=== PATIENT | female | born 1995 | race Caucasian/White ===

== ENCOUNTER 2016-10-30 08:58 | Emergency (ER) | payer BC ==
[~2016-10-30] VITALS: Ht 167.6 cm; Wt 58.0 kg
[~2016-10-30 08:58] MED LIST: FLUC150T PO
[2016-10-30 09:04] VITALS: TEMP 36.8; Ht 167.6 cm; Wt 58.0 kg
[2016-10-30 10:00] LABS: MEAN CELL VOLUME 83.9 fL (80-100); MEAN CORPUSCULAR HEMOGLOBIN 29.7 pg (25-34); MEAN CORPUSCULAR HGB CONC 35.4 g/dl (32-36); MEAN PLATELET VOLUME 8.9 fL (7.4-10.4); PLATELET COUNT 331 K/uL (130-400); RED BLOOD COUNT 4.41 M/uL (4.2-5.4); WHITE BLOOD COUNT 7.64 K/uL (4.8-10.8)
[2016-10-30 10:11] LABS: INR 1.1 (0.9-1.1); PARTIAL THROMBOPLASTIN RATIO 1.1; PROTHROMBIN TIME (PATIENT) 11.7 SECONDS (9.0-12.0)
[2016-10-30 10:16] LABS: BUN/CREATININE RATIO 16.5 (10-20); CALCIUM 8.8 mg/dl (8.5-10.1); CREATININE 0.68 mg/dl (0.60-1.20); POTASSIUM 3.7 mmol/L (3.5-5.1)
--- NOTE | 2016-10-30 11:05 | DIAGNOSTIC IMAGING REPORT ---
LIMITED (US) CLINICAL HISTORY: Vaginal bleeding. . COMPARISON STUDY: No previous studies for comparison. FINDINGS: The uterus measures 8.8 x 4.4 x 6 cm. The maternal left ovary appear normal. There is a 23 mm right ovarian cyst consistent with a corpus luteum. A single intrauterine gestational sac was visualized. A normal-appearing yolk sac was identified. cardiac activity was not yet visualized. There is a trace subchorionic hematoma. IMPRESSION: Very early intrauterine gestation. cardiac activity cannot yet be confirmed. Trace subchorionic hematoma. Clinical and ultrasound follow-up recommended. Electronically signed by: Nicolas Perkins M.D. 10/30/2016 11:04 AM Dictated Date/Time: 10/30/2016 11:00 AM
[2016-10-30 12:16] VITALS: BP 112/51; PULSE 82; O2SAT 98
[2016-10-30 12:33] LABS: URINE APPEARANCE CLEAR (CLEAR); URINE BILIRUBIN NEG (NEG); URINE COLOR YELLOW; URINE EPITHELIAL CELL AUTO >30 /lpf (0-5); URINE NITRITE NEG (NEG); URINE PH 6.5 (4.5-7.5); URINE SPECIFIC GRAVITY 1.011 (1.000-1.030); UROBILINOGEN NEG (NEG); ZZUR CULT IF INDIC CLEAN CATCH NO
[2016-10-30 12:42] LABS: MANUAL MICROSCOPIC REQUIRED? NO; REVIEW REQ? NO
--- NOTE | 2016-10-30 16:37 | EMERGENCY ROOM VISIT NOTE ---
History Report prepared by Jona: Romeo Jones Under the Supervision of: Dr. Wil Hamilton M.D. First contact with patient: 09:28 Chief Complaint: VAGINAL BLEEDING Stated Complaint: EARLY PREG 5 WKS,SPOTTING,CRAMPING,LIGHTHEADEDNESS History of Present Illness The patient is a 21 year old female who presents to the Emergency Room with complaints of acute vaginal bleeding that started this morning. The patient noticed some spotting this morning, and has not had any other vaginal bleeding since her last menstrual period. The patient states that she is 5.5 weeks , which she is basing on her last period. She has yet to follow up with an Construction Superintendent, and does not have a specific provider or group in mind. She has not had any imaging yet. The patient also noticed some pelvic cramping today, rated 3/10 in severity. She has been experiencing nausea & vomiting for the past two days, and intermittent lightheadedness for the past week. She denies any urinary symptoms or indications of a UTI. This is the patient's first . Source of History: patient Onset: this morning Position: other (vaginal) Symptom Intensity: spotting Quality: other (bleeding) Timing: other (acute) Associated Symptoms: + abdominal pain (pelvic cramps), + nausea, + vomiting , No urinary symptoms Review of Systems See HPI for pertinent positives & negatives. A total of 10 systems reviewed and were otherwise negative. Past Medical & Surgical Medical Problems: (1) Arthralgia (2) Bilateral flank pain Family History Hypertension Social History Smoking Status: Former Smoker Alcohol Use: occasionally Drug Use: none Housing Status: lives with roommate Occupation Status: employed Current/Historical Medications No Active Prescriptions or Reported Meds Allergies Coded Allergies: Prochlorperazine (Unverified Adverse Reaction, Intermediate, TERRIBLE PANIC ATTACKS, 10/30/16) Physical Exam Vital Signs Date Time Temp Pulse Resp B/P Pulse Ox O2 Delivery O2 Flow Rate FiO2 10/30/16 12:16 82 16 112/51 98 10/30/16 11:12 76 16 114/52 99 Room Air 10/30/16 09:04 36.8 81 18 108/67 97 Room Air Physical Exam GENERAL: Patient is in no acute distress. HEENT: No acute trauma, normocephalic atraumatic, mucous membranes moist, no nasal congestion, no scleral icterus. NECK: No stridor, no adenopathy, no meningismus, trachea is midline. LUNGS: Clear to auscultation bilaterally, no wheeze, no rhonchi, breath sounds equal. HEART: Without murmurs gallops or rubs, regular rate and rhythm. ABDOMEN: Soft, tender primarily over the left lower quadrant / pelvis, bowel sounds positive, no hernias, no peritonitis. EXTREMITIES: No cyanosis or edema, full range of motion of all the joints without pain or difficulty, no signs for acute trauma. NEUROLOGIC: Oriented x 3, no acute motor or sensory deficits, no focal weakness. SKIN: No rash, no jaundice, no diaphoresis. Medical Decision & Procedures ER Provider Diagnostic Interpretation: US results as stated below per my review and radiologist interpretation: LIMITED (US) CLINICAL HISTORY: Vaginal bleeding. . COMPARISON STUDY: No previous studies for comparison. FINDINGS: The uterus measures 8.8 x 4.4 x 6 cm. The maternal left ovary appear normal. There is a 23 mm right ovarian cyst consistent with a corpus luteum. A single intrauterine gestational sac was visualized. A normal-appearing yolk sac was identified. cardiac activity was not yet visualized. There is a trace subchorionic hematoma. IMPRESSION: Very early intrauterine gestation. cardiac activity cannot yet be confirmed. Trace subchorionic hematoma. Clinical and ultrasound follow-up recommended. Electronically signed by: Nicolas Perkins M.D. 10/30/2016 11:04 AM Dictated Date/Time: 10/30/2016 11:00 AM Laboratory Results 10/30/16 09:42 10/30/16 09:42 Test 10/30/16 09:42 10/30/16 11:56 Red Blood Count 4.41 M/uL (4.2-5.4) Mean Corpuscular Volume 83.9 fL (80-100) Mean Corpuscular Hemoglobin 29.7 pg (25-34) Mean Corpuscular Hemoglobin Concent 35.4 g/dl (32-36) RDW Standard Deviation 37.5 fL (36.4-46.3) RDW Coefficient of Variation 12.2 % (11.5-14.5) Mean Platelet Volume 8.9 fL (7.4-10.4) Prothrombin Time 11.7 SECONDS (9.0-12.0) Prothromb Time International Ratio 1.1 (0.9-1.1) Activated Partial Thromboplast Time 29.3 SECONDS (21.0-31.0) Partial Thromboplastin Ratio 1.1 Anion Gap 9.0 mmol/L (3-11) Est Creatinine Clear Calc Drug Dose 117.8 ml/min Estimated GFR () 142.9 Estimated GFR (Non- 123.3 BUN/Creatinine Ratio 16.5 (10-20) Calcium Level 8.8 mg/dl (8.5-10.1) Human Chorionic Gonadotropin, Quant 6757 mIU/mL Urine Color YELLOW Urine Appearance CLEAR (CLEAR) Urine pH 6.5 (4.5-7.5) Urine Specific Cecil 1.011 (1.000-1.030) Urine Protein NEG (NEG) Urine Glucose (UA) NEG (NEG) Urine Ketones 2+ (NEG) Urine Occult Blood TRACE (NEG) Urine Nitrite NEG (NEG) Urine Bilirubin NEG (NEG) Urine Urobilinogen NEG (NEG) Urine Leukocyte Esterase NEG (NEG) Urine WBC (Auto) 1-5 /hpf (0-5) Urine RBC (Auto) 0-4 /hpf (0-4) Urine Hyaline Casts (Auto) 1-5 /lpf (0-5) Urine Epithelial Cells (Auto) >30 /lpf (0-5) Urine Bacteria (Auto) NEG (NEG) Laboratory results reviewed by me. Urine dip showed ketones and trace blood but no signs of infection. ED Course 09: The patient was evaluated in room B11b. A complete history and physical exam was performed. 1133: Discussed the case with Dr. Hopson, Obstetrics & Gynecology. The patient will follow up with them. 1158: Reassessed the patient. Discussed the findings with them. She verbalized understanding and agreement of the treatment plan. The patient is ready for discharge. Medical Decision Differential diagnosis includes bleeding in healthy , miscarriage, ovarian cyst, ectopic , anemia, UTI, coagulopathy. There is no leukocytosis, no concerning anemia. No significant electrolyte abnormality or kidney failure. Quantitative beta hCG is over 6000, this is consistent with her presumed dates. Blood type was A+, no RhoGAM required. There was no coagulopathy. Urinalysis shows ketones, no signs of infection. Pelvic ultrasound showed a subchorionic hematoma, the was really early but within the uterus, no heart tones noted. The patient did not want anything for pain or nausea. She has done well here. I told her the results of her testing. I did speak with OB. The patient will have a follow-up appointment this week. The patient was encouraged to return for any heavier bleeding, worsening symptoms. Consults Time Called: 1125 Consulting Physician: Dr. Hopson, Obstetrics & Gynecology Returned Call: [phone]: Discussed the case with Dr. Hopson, Obstetrics & Gynecology. The patient will follow up with them. Impression Primary Impression: Vaginal bleeding Additional Impressions: Subchorionic hematoma Scribe Attestation The scribe's documentation has been prepared under my direction and personally reviewed by me in its entirety. I confirm that the note above accurately reflects all work, treatment, procedures, and medical decision making performed by me. Departure Information Dispostion Home / Self-Care Prescriptions No Active Prescriptions or Reported Meds Referrals No Doctor, Assigned (PCP) Forms HOME CARE DOCUMENTATION FORM, IMPORTANT VISIT INFORMATION, WORK / SCHOOL INSTRUCTIONS Patient Instructions My [facility] Additional Instructions call and set up ob appt---call today tylenol for pain rest no heavy lifting no sex return for worsening symptoms or heavy bleeding Problem Qualifiers
== END 2016-10-30 12:18 | disposition home or self-care (01) ==
LOC: C.EDB 08:59
DX: O99.89 Other specified diseases and conditions complicating pregnancy, childbirth and the puerperium (principal); N93.9 Abnormal uterine and vaginal bleeding, unspecified; R11.2 Nausea with vomiting, unspecified; Z87.891 Personal history of nicotine dependence; Z3A.01 Less than 8 weeks gestation of pregnancy

== ENCOUNTER 2016-11-01 09:26 | Emergency (ER) | payer BC ==
[~2016-11-01] VITALS: Ht 167.6 cm; Wt 61.2 kg
[2016-11-01 09:43] VITALS: TEMP 37; Ht 167.6 cm; Wt 61.2 kg
[2016-11-01] MEDS ORDERED: SODIUM CHLORIDE 0.9% 1000ML 500 ML IV STA (09:54)
--- NOTE | 2016-11-01 09:57 | EMERGENCY ROOM VISIT NOTE ---
History Report prepared by Jona: Sea Ramirez Under the Supervision of: Dr. Wil Hamilton M.D. First contact with patient: 09:49 Chief Complaint: ED VAG BLEEDING Stated Complaint: 6 WKS. , VAGINAL BLEEDING History of Present Illness The patient is a 21 year old female who presents to the Emergency Room with complaints of an episode of vaginal bleeding beginning this morning. She notes she was here 2 days ago with vaginal bleeding. She admits to being around 5.5 weeks , and that this is her first which was unplanned. The patient denies having any current pain, and has not had any recent trauma or fever in the past couple days. She reports having some nausea upon taking vitamins. The patient has not been seen by OB but has an appointment at [facility] for this week. Source of History: patient Onset: this morning Position: other (vagina) Quality: other (vaginal bleed) Timing: other (episode) Associated Symptoms: + nausea (upon taking vitamins), No fevers Review of Systems See HPI for pertinent positives & negatives. A total of 10 systems reviewed and were otherwise negative. Past Medical & Surgical Medical Problems: (1) Arthralgia (2) Bilateral flank pain Family History Hypertension Social History Smoking Status: Former Smoker Alcohol Use: occasionally Drug Use: none Housing Status: lives with roommate Occupation Status: employed Current/Historical Medications No Active Prescriptions or Reported Meds Allergies Coded Allergies: Prochlorperazine (Unverified Adverse Reaction, Intermediate, TERRIBLE PANIC ATTACKS, 11/01/16) Physical Exam Vital Signs Date Time Temp Pulse Resp B/P Pulse Ox O2 Delivery O2 Flow Rate FiO2 11/01/16 12:34 76 106/56 100 11/01/16 11:46 70 101/49 100 11/01/16 09:43 37.0 81 18 121/68 99 Room Air Physical Exam GENERAL: Patient is in no acute distress. HEENT: No acute trauma, normocephalic atraumatic, mucous membranes moist, no nasal congestion, no scleral icterus. NECK: No stridor, no adenopathy, no meningismus, trachea is midline. LUNGS: Clear to auscultation bilaterally, no wheeze, no rhonchi, breath sounds equal. HEART: Without murmurs gallops or rubs, regular rate and rhythm. ABDOMEN: Soft, nontender, bowel sounds positive, no hernias, no peritonitis. EXTREMITIES: No cyanosis or edema, full range of motion of all the joints without pain or difficulty, no signs for acute trauma. NEUROLOGIC: Oriented x 3, no acute motor or sensory deficits, no focal weakness. SKIN: No rash, no jaundice, no diaphoresis. Medical Decision & Procedures ER Provider Diagnostic Interpretation: US results as stated below per my review and radiologist interpretation: Limited ultrasound LIMITED (US) FINDINGS: Single, viable intrauterine of approximately 5 weeks 6 days gestational age. heartbeat is confirmed. Previous described subchorionic hemorrhage is not appreciated currently. IMPRESSION: 1. The study now confirms presence of a single, viable intrauterine . 2. gestational age corresponds to 5 weeks 6 days. 3. Previously described subchorionic bleed has resolved Electronically signed by: Minh Orozco M.D. 11/01/2016 10:58 AM Dictated Date/Time: 11/01/2016 10:56 AM Laboratory Results 11/01/16 10:02 Test 11/01/16 10:02 Red Blood Count 4.12 M/uL (4.2-5.4) Mean Corpuscular Volume 83.5 fL (80-100) Mean Corpuscular Hemoglobin 28.9 pg (25-34) Mean Corpuscular Hemoglobin Concent 34.6 g/dl (32-36) RDW Standard Deviation 37.1 fL (36.4-46.3) RDW Coefficient of Variation 12.2 % (11.5-14.5) Mean Platelet Volume 9.2 fL (7.4-10.4) Human Chorionic Gonadotropin, Quant 81285 mIU/mL Laboratory results reviewed by me. Medications Administered Medications (Trade) Dose Ordered Sig/Angel Route Start Time Stop Time Status Last Admin Dose Admin Sodium Chloride (Nss 1000ml) 500 ml @ 999 mls/hr Q31M STAT IV 11/01/16 09:54 11/01/16 10:24 DC 11/01/16 10:04 999 MLS/HR ED Course 0951: The patient was evaluated in room A11B. A complete history and physical exam was performed. 0954: Ordered NSS 500 ml @ 999 mls/hr IV. 1230: Reevaluated the patient. Discussed results and discharge instructions: She verbalized understanding and agreement. The patient is ready for discharge. Medical Decision Differentials include miscarriage, ectopic , vaginal bleeding in healthy , anemia, coagulopathy, and trauma. There is no leukocytosis. There is a very mild anemia noted but nothing significant or worrisome. Beta quantitative result has increased significantly since 2 days ago. Pelvic ultrasound shows a viable intrauterine , the subchorionic hematoma noted previously has resolved. The patient was reassured by her testing. She is not in pain or in any distress , the bleeding has slowed. She had more bleeding earlier before arriving at the ER. She is being seen by OB in a few days, she will keep this appointment. Continued pelvic rest was encouraged. If worsening, she can return. Impression Primary Impression: Vaginal bleeding Additional Impression: Scribe Attestation The scribe's documentation has been prepared under my direction and personally reviewed by me in its entirety. I confirm that the note above accurately reflects all work, treatment, procedures, and medical decision making performed by me. Departure Information Dispostion Home / Self-Care Prescriptions No Active Prescriptions or Reported Meds Referrals No Doctor, Assigned (PCP) Patient Instructions My [facility] Additional Instructions no sex pelvic rest no heavy lifting or prolonged time on your feet see ob thursday as scheduled ultrasound shows a healthy now, the area of bleeding has resolved return for worsening symptoms Problem Qualifiers
[2016-11-01 10:35] LABS: HEMATOCRIT 34.4 % (37-47); MEAN CELL VOLUME 83.5 fL (80-100); MEAN CORPUSCULAR HEMOGLOBIN 28.9 pg (25-34); MEAN CORPUSCULAR HGB CONC 34.6 g/dl (32-36); MEAN PLATELET VOLUME 9.2 fL (7.4-10.4); PLATELET COUNT 317 K/uL (130-400); RED BLOOD COUNT 4.12 M/uL (4.2-5.4); WHITE BLOOD COUNT 7.04 K/uL (4.8-10.8)
--- NOTE | 2016-11-01 10:59 | DIAGNOSTIC IMAGING REPORT ---
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 heartbeat is confirmed. Previous described subchorionic hemorrhage is not appreciated currently. IMPRESSION: 1. The study now confirms presence of a single, viable intrauterine . 2. gestational age corresponds to 5 weeks 6 days. 3. Previously described subchorionic bleed has resolved Electronically signed by: Minh Orozco M.D. 11/01/2016 10:58 AM Dictated Date/Time: 11/01/2016 10:56 AM
[2016-11-01 12:34] VITALS: BP 106/56; PULSE 76; O2SAT 100
--- NOTE | 2016-11-03 09:10 | DIAGNOSTIC IMAGING REPORT ---
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 heartbeat is confirmed. Previous described subchorionic hemorrhage is not appreciated currently. IMPRESSION: 1. The study now confirms presence of a single, viable intrauterine . 2. gestational age corresponds to 5 weeks 6 days. 3. Previously described subchorionic bleed has resolved Electronically signed by: Minh Orozco M.D. 11/01/2016 10:58 AM Dictated Date/Time: 11/01/2016 10:56 AM
== END 2016-11-01 12:35 | disposition home or self-care (01) ==
LOC: C.EDB 09:27 → C.EDA 12:35
DX: O99.89 Other specified diseases and conditions complicating pregnancy, childbirth and the puerperium (principal); N93.9 Abnormal uterine and vaginal bleeding, unspecified; Z3A.01 Less than 8 weeks gestation of pregnancy; R11.0 Nausea

== ENCOUNTER 2017-02-19 00:59 | Outpatient (CLI) | payer BC ==
[~2017-02-19] VITALS: Ht 167.6 cm; Wt 65.0 kg
[2017-02-19 01:54] VITALS: Ht 167.6 cm; Wt 65.0 kg
[2017-02-19] MEDS ORDERED: PRENTAB26 PO (02:00)
== END 2017-02-19 02:09 | disposition home or self-care (01) ==
LOC: C.LD 00:59 → C.OPB 00:59
PROVIDERS: ATTEND Obstetrics & Gynecology
DX: Z34.02 Encounter for supervision of normal first pregnancy, second trimester (principal); Z3A.21 21 weeks gestation of pregnancy

== ENCOUNTER 2017-04-08 21:43 | Outpatient (CLI) | payer BC ==
[~2017-04-08] VITALS: Ht 167.6 cm; Wt 70.5 kg
[~2017-04-08 21:43] MED LIST changes: -FLUC150T PO; +PRENTAB26 PO
[2017-04-08 22:30] VITALS: Ht 167.6 cm; Wt 70.5 kg
[2017-06-25] MEDS ORDERED: MTR600X PO (10:08)
== END 2017-04-08 22:20 | disposition home or self-care (01) ==
LOC: C.OPB 21:43 → C.LD 21:44 → C.OPB 22:20
PROVIDERS: ATTEND Obstetrics & Gynecology
DX: O36.8130 Decreased fetal movements, third trimester, not applicable or unspecified (principal); Z3A.28 28 weeks gestation of pregnancy

== ENCOUNTER 2017-04-28 09:46 | Emergency (ER) | payer BC ==
[~2017-04-28] VITALS: Ht 167.6 cm; Wt 71.5 kg
[2017-04-28 09:50] VITALS: TEMP 37; Ht 167.6 cm; Wt 71.5 kg
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
[2017-04-28] MEDS ORDERED: OMEG10007 PO (10:09)
[2017-04-28 10:38] LABS: BENZODIAZEPINE, URINE NEG (NEG); COCAINE,URINE NEG (NEG); PHENCYCLIDINE, URINE NEG (NEG)
[2017-04-28 10:41] LABS: BASO % 0.1 %; BASO ABS # 0.02 K/uL (0-0.2); COMPLETE YES; EOS % 0.5 %; HEMATOCRIT 33.4 % (37-47); IG% 0.6 %; LYMPH % 15.8 %; LYMPH ABS # 2.26 K/uL (1.2-3.4); MEAN CELL VOLUME 88.1 fL (80-100); MEAN CORPUSCULAR HEMOGLOBIN 30.6 pg (25-34); MEAN CORPUSCULAR HGB CONC 34.7 g/dl (32-36); MEAN PLATELET VOLUME 9.3 fL (7.4-10.4); PLATELET COUNT 312 K/uL (130-400); RED BLOOD COUNT 3.79 M/uL (4.2-5.4); WHITE BLOOD COUNT 14.29 K/uL (4.8-10.8)
[2017-04-28 11:01] LABS: ALT/SGPT 24 U/L (12-78); AST/SGOT 15 U/L (15-37); BLOOD UREA NITROGEN 6 mg/dl (7-18); BUN/CREATININE RATIO 10.5 (10-20); CALCIUM 9.2 mg/dl (8.5-10.1); CARBON DIOXIDE 23 mmol/L (21-32); CHLORIDE 107 mmol/L (98-107); CREATININE 0.54 mg/dl (0.60-1.20); GLUCOSE 85 mg/dl (70-99); POTASSIUM 4.1 mmol/L (3.5-5.1); SODIUM 138 mmol/L (136-145)
[2017-04-28 11:12] LABS: ALB/GLOB RATIO 0.8 (0.9-2); ALKALINE PHOSPHATASE 118 U/L (45-117)
[2017-04-28 11:22] LABS: ACETAMINOPHEN < 2 ug/ml (10-30)
[2017-04-28 15:02] LABS: URINE APPEARANCE CLOUDY (CLEAR); URINE BILIRUBIN NEG (NEG); URINE COLOR YELLOW; URINE EPITHELIAL CELL AUTO >30 /lpf (0-5); URINE NITRITE NEG (NEG); URINE SPECIFIC GRAVITY 1.015 (1.000-1.030); UROBILINOGEN NEG (NEG); ZZUR CULT IF INDIC CLEAN CATCH YES
[2017-04-28 15:12] LABS: MANUAL MICROSCOPIC REQUIRED? NO; REVIEW REQ? NO
--- NOTE | 2017-04-28 19:32 | EMERGENCY ROOM VISIT NOTE ---
ED Visit Note First contact with patient: 19:31 See this patient at change of shift signout from Dr. Robles. Please see his note for complete history physical. The patient is a 22-year-old female who presented to the emergency department for a mental health evaluation. She was medically cleared previously. Currently there is a bed search underway. The patient requires medical treatment as well as because she is currently near her third trimester. The patient did not require any medications at this time. She was evaluated by the emergency Department minimal director case management. The patient was accepted at [facility] for inpatient mental health care. Transfer paperwork was filled out by myself.
[2017-04-28 23:48] VITALS: BP 97/68; PULSE 71; O2SAT 98
== END 2017-04-28 23:51 ==
LOC: C.EDB 09:47 → C.EDA 23:51
DX: Z00.8 Encounter for other general examination (principal); O99.89 Other specified diseases and conditions complicating pregnancy, childbirth and the puerperium; R45.851 Suicidal ideations; F32.9 Major depressive disorder, single episode, unspecified

== ENCOUNTER 2017-06-09 15:38 | Outpatient (CLI) | payer BC ==
[~2017-06-09] VITALS: Ht 167.6 cm; Wt 79.1 kg
[~2017-06-09 15:38] MED LIST changes: +OMEG10007 PO
[2017-06-09 17:04] VITALS: Ht 167.6 cm; Wt 79.1 kg
[2017-06-09] MEDS ORDERED: RANI150T3 PO (17:09)
--- NOTE | 2017-06-09 19:15 | Progress Note ---
Progress Note Date of Service Jun 09, 2017. Progress Note 22 WF P0000 at 37.2 weeks sent in from office for history of bleeding after intercourse on Thursday and again yesterday some spotting. Seen in L&D for monitoring. NO bleeding noted and no abdominal pain on abdominal exam. No edema or headache. FHT Cat 1 with no regular contractions. Will d/c home and follow up in office. Instructions to not have any intercourse till seen in office.
[2017-06-09 19:36] LABS: BENZODIAZEPINE, URINE NEG (NEG); COCAINE,URINE NEG (NEG); PHENCYCLIDINE, URINE NEG (NEG)
== END 2017-06-09 19:20 | disposition home or self-care (01) ==
LOC: C.LD 15:38 → C.OPB 15:38
PROVIDERS: ATTEND Obstetrics & Gynecology
DX: O26.853 Spotting complicating pregnancy, third trimester (principal); Z3A.37 37 weeks gestation of pregnancy

== ENCOUNTER 2017-06-18 23:21 | Outpatient (CLI) | payer BC ==
[~2017-06-18] VITALS: Ht 167.6 cm; Wt 60.0 kg
[~2017-06-18 23:21] MED LIST changes: +RANI150T3 PO
[2017-06-19 00:32] VITALS: Ht 167.6 cm; Wt 60.0 kg
== END 2017-06-19 00:35 | disposition home or self-care (01) ==
LOC: C.LD 23:21 → C.OPB 23:21
PROVIDERS: ATTEND Obstetrics & Gynecology
DX: O26.893 Other specified pregnancy related conditions, third trimester (principal); N89.8 Other specified noninflammatory disorders of vagina; Z3A.00 Weeks of gestation of pregnancy not specified

== ENCOUNTER 2017-06-23 02:42 | Inpatient (IN) | payer BC ==
[~2017-06-23] VITALS: Ht 167.6 cm; Wt 80.0 kg
[2017-06-23 04:40] VITALS: Ht 167.6 cm; Wt 80.0 kg
[2017-06-23 05:09] LABS: HEMATOCRIT 35.2 % (37-47); MEAN CELL VOLUME 87.8 fL (80-100); MEAN CORPUSCULAR HEMOGLOBIN 29.9 pg (25-34); MEAN PLATELET VOLUME 9.5 fL (7.4-10.4); PLATELET COUNT 329 K/uL (130-400); RED BLOOD COUNT 4.01 M/uL (4.2-5.4); WHITE BLOOD COUNT 15.85 K/uL (4.8-10.8)
[2017-06-23 05:13] LABS: MEAN CORPUSCULAR HGB CONC 34.1 g/dl (32-36)
--- NOTE | 2017-06-23 07:08 | Progress Note ---
Progress Note Date of Service Jun 23, 2017. Progress Note Admit Note 22 F P0000 at 39.2 weeks with SROM clear fluid and onset of irregular contractions. Cervix is 3-4/80/-1. FHT Cat 1. GBS is negative. Will admit in labor.
[2017-06-23] MEDS ORDERED: LACTATED RINGER'S 1000ML 500 ML IV PRN ×2 (13:13→14:48)
[2017-06-23] MEDS ORDERED: BUPIVACAINE 0.25% 30 ML VIAL ONE (13:15)
[2017-06-23] MEDS ORDERED: OXYTOCIN 30 UNITS/500ML NSS IV PRN ×2 (13:15→21:00)
[2017-06-23] MEDS ORDERED: EpHEDrine SULFATE INJ 50 MG/ML AMP ONE (13:16)
[2017-06-23] MEDS ORDERED: FENTANYL CITRATE INJ 50 MCG/1 ML 2 ML VIAL ONE (13:16)
[2017-06-23] MEDS ORDERED: FENTANYL 2MCG/ML ROPIV 1.25MG/ML 100ML BAG EPI ONE (13:16)
[2017-06-23] MEDS ORDERED: NALOXONE HCL INJ 1 MG in SODIUM CHLORIDE 0.9% 1000ML 1,000 ML IV PRN (14:48)
[2017-06-23] MEDS ORDERED: ONDANSETRON INJ 2 MG/ML 2 ML VIAL IV PRN (15:00)
[2017-06-23] MEDS ORDERED: DiphenhydrAMINE HCL 50 MG/ML VIAL IV PRN (15:00)
[2017-06-23] MEDS ORDERED: EpHEDrine SULFATE INJ 50 MG/ML AMP IV PRN (15:00)
[2017-06-23] MEDS ORDERED: PROMETHAZINE HCL INJ 6.25 MG in SODIUM CHLORIDE 0.9% 50ML 50 ML IV PRN (15:00)
[2017-06-23] MEDS ORDERED: NALOXONE HCL INJ 0.4 MG/1 ML VIAL/CARP IV PRN (15:00)
[2017-06-23] MEDS ORDERED: NALBUPHINE HCL INJ 10 MG/ML AMP IV PRN (15:00)
[2017-06-23] MEDS ORDERED: FENTANYL 2MCG/ML ROPIV 1.25MG/ML 100ML BAG EPI PRN (15:00)
[2017-06-23] MEDS: LACTATED RINGER'S 1000ML 1,000 ML IV SCH ×2 (15:04→19:00)
[2017-06-23] MEDS ORDERED: RANITIDINE HCL 150 MG TAB PO PRN (21:00)
[2017-06-23] MEDS ORDERED: SUPERCREAM 0.870 % 15GM JAR EXT PRN (21:00)
[2017-06-23] MEDS ORDERED: OXYCODONE/ACETAMINOPHEN 5-325 TAB PO PRN (21:00)
[2017-06-23] MEDS ORDERED: ACETAMINOPHEN/CODEINE 300/30MG TAB PO PRN (21:00)
[2017-06-23] MEDS ORDERED: HYDROCORTISONE ACETATE 25 MG SUPP PR PRN (21:00)
[2017-06-23] MEDS ORDERED: DIPHTHERIA/TETANUS/PERTUSSIS 0.5 ML SYR/VIAL IM. ONE (21:00)
[2017-06-23] MEDS ORDERED: LANOLIN OINT EXT PRN ×2 (21:00)
[2017-06-23] MEDS ORDERED: ACETAMINOPHEN 325 MG TAB PO PRN (21:00)
[2017-06-23] MEDS ORDERED: BENZOCAINE 20% AER SPR 82.5 GM CAN EXT PRN (21:00)
--- NOTE | 2017-06-23 22:41 | DELIVERY SUMMARY ---
DATE OF OPERATION: 06/23/2017 TIME OF DELIVERY: 2027. DELIVERY OF PLACENTA: 2030. DELIVERY NOTE: The patient is a 22-year-old, 1 para 0 at 39 weeks and 2 days gestation, who presents to labor and delivery on the morning of 06/23/2017 with spontaneous rupture of membranes that occurred at 01:45 a.m. Clear amniotic fluid was noted. Oxytocin was began for labor augmentation. She received an epidural for anesthesia. She reached complete dilation at 1823 with the urge to push. The patient pushed to delivery at 2027 to an intact perineum. She delivered a viable female infant in the left occiput anterior position. Nuchal cord x2 was reduced at delivery. The baby was delivered and placed on the patient's abdomen. Delayed cord clamping was performed. Cord was then cut. Apgars were 8 at one minute and 9 at five minutes. Please see nursing notes for further baby assessment. Cord blood was then obtained. Intact placenta with 3-vessel cord was delivered at 2030. Oxytocin infusion was then begun. The lower uterine segment and vagina were cleared of any blood clot and debris. Exploration of the perineum noted a first-degree vaginal laceration and a left periurethral laceration which was injected with lidocaine for anesthesia and was suture ligated with 2-0 and 3-0 Vicryl suture in a continuous running fashion. Excellent hemostasis was noted. No other lacerations were seen. All sponge, instrument and needle counts were found to be correct x2. Estimated blood loss was 300 mL. Both the patient and baby tolerated the delivery well and were in recovery with stable vital signs. I attest to the content of the Intraoperative Record and any orders documented therein. Any exception s are noted below.
[2017-06-24] MEDS: ACETAMINOPHEN/CODEINE 300/30MG TAB PO PRN ×2 (00:01→04:35)
[2017-06-24 00:20] VITALS: BP 101/60; PULSE 83; TEMP 36.9; O2SAT 98
--- NOTE | 2017-06-24 03:21 | Anesthesia Procedure Note ---
Anesthesia Epidural Removal Nt Date & Time Jun 24, 2017 at 03:21 Vital Signs Pain Intensity: 4.0 Vital Signs Past 12 Hours Date Time Temp Pulse Resp B/P (MAP) Pulse Ox O2 Delivery O2 Flow Rate FiO2 06/24/17 00:20 98 Room Air 06/24/17 00:20 36.9 83 18 101/60 (74) 98 Room Air Notes Mental Status: alert / awake / arousable, participated in evaluation Nausea / Vomiting: adequately controlled Pain: adequately controlled Airway Patency, RR, SpO2: stable & adequate BP & HR: stable & adequate Hydration State: stable & adequate Neuraxial Anesthesia: was administered Anesthetic Complications: no major complications apparent, pt satisfied with anesthetic care Epidural: removed without complications, with tip intact
[2017-06-24 04:40] VITALS: BP 106/64; PULSE 74; TEMP 36.7; O2SAT 100
[2017-06-24] MEDS: IBUPROFEN 600 MG TAB PO PRN ×3 (07:11→20:48)
[2017-06-24 08:00] VITALS: BP 114/64; PULSE 70; TEMP 36.6
[2017-06-24] MEDS: PRENATAL VITAMIN TAB PO SCH (08:57)
[2017-06-24] MEDS: FERROUS SULFATE 325 MG TAB PO SCH (08:57)
[2017-06-24] MEDS: DOCUSATE SODIUM 100 MG CAP PO SCH ×2 (08:57→20:44)
--- NOTE | 2017-06-24 09:54 | OB/GYN Progress Note ---
EXTRUDER OPERATOR HORIZONTAL Progress Note Date of Service Jun 24, 2017. Subjective conversation w/ patient, physical exam Ambulation: ambulating normally Voiding: no voiding problems Passing Gas: Yes Diet Tolerance: Regular Diet Lochia: Small Feeding Type: Bottle Feeding Objective Vital Signs Date Time Temp Pulse Resp B/P (MAP) Pulse Ox O2 Delivery O2 Flow Rate FiO2 06/24/17 08:00 Room Air 06/24/17 08:00 36.6 70 18 114/64 (81) Room Air 06/24/17 04:40 36.7 74 16 106/64 (78) 100 Room Air 06/24/17 00:20 98 Room Air 06/24/17 00:20 36.9 83 18 101/60 (74) 98 Room Air Physical Exam General Appearance: WELL-APPEARING, NO APPARENT DISTRESS Abdomen: non tender, soft Fundus: Firm Extremities: non-tender, normal inspection, no pedal edema Laboratory Results Last 24 Hours Test 06/24/17 09:46 Assessment and Plan Post- Day Number: 1 Continue Routine Care: tent d/c in AM
[2017-06-24 10:00] LABS: HEMATOCRIT 30.6 % (37-47)
[2017-06-24 11:20] VITALS: BP 96/48; PULSE 85; TEMP 36.9
[2017-06-24 15:50] VITALS: BP 108/61; PULSE 81; TEMP 36.9
[2017-06-24] MEDS ORDERED: BISACODYL 5 MG TABEC PO SCH (20:00)
[2017-06-24 20:40] VITALS: BP 112/63; PULSE 81; TEMP 37.1
[2017-06-25 00:50] VITALS: BP 103/59; PULSE 79; TEMP 36.7; O2SAT 97
[2017-06-25] MEDS: IBUPROFEN 600 MG TAB PO PRN ×3 (01:03→10:10)
[2017-06-25 01:15] VITALS: BP 99/50; PULSE 68; O2SAT 99
[2017-06-25] MEDS ORDERED: BISACODYL 10 MG SUPP PR PRN (07:00)
[2017-06-25 07:50] VITALS: BP 115/64; PULSE 65; TEMP 36.8; O2SAT 99
[2017-06-25 07:53] LABS: HEMATOCRIT 28.5 % (37-47); MEAN CELL VOLUME 88.2 fL (80-100); MEAN CORPUSCULAR HEMOGLOBIN 30.7 pg (25-34); MEAN CORPUSCULAR HGB CONC 34.7 g/dl (32-36); MEAN PLATELET VOLUME 9.1 fL (7.4-10.4); PLATELET COUNT 256 K/uL (130-400); RED BLOOD COUNT 3.23 M/uL (4.2-5.4)
--- NOTE | 2017-06-25 10:06 | OB/GYN Progress Note ---
SENIOR PLANNING ANALYST Progress Note Date of Service Jun 25, 2017. Subjective conversation w/ patient, physical exam Ambulation: ambulating normally Voiding: no voiding problems Passing Gas: Yes Diet Tolerance: Regular Diet Lochia: Moderate Feeding Type: Breast Feeding Review of Systems Constitutional: No fever, No chills, No sweats, No weight loss, No weakness, No fatigue, No problem reported Respiratory: No cough, No sputum, No wheezing, No shortness of breath, No dyspnea on exertion, No dyspnea at rest, No hemoptysis, No problem reported Cardiac: No chest pain, No orthopnea, No PND, No edema, No claudication, No palpitations, No problem reported Breast: No see HPI, No breast lump, No change in shape, No nipple discharge, No breast pain, No problem reported Abdomen: No pain, No nausea, No vomiting, No diarrhea, No constipation, No GI bleeding, No problem reported Female : No see HPI, No dysuria, No urinary frequency, No hematuria, No incontinence, No abnormal vaginal bleeding, No vaginal discharge, No problem reported Objective Vital Signs Date Time Temp Pulse Resp B/P (MAP) Pulse Ox O2 Delivery O2 Flow Rate FiO2 06/25/17 07:50 99 Room Air 06/25/17 07:50 36.8 65 18 115/64 (81) 99 Room Air 06/25/17 01:15 68 18 99/50 (66) 99 Room Air 06/25/17 01:15 99 Room Air 06/25/17 00:50 36.7 79 18 103/59 (74) 97 Room Air 06/25/17 00:50 97 Room Air 06/24/17 20:40 37.1 81 16 112/63 (79) Room Air 06/24/17 15:50 36.9 81 18 108/61 (77) Room Air 06/24/17 15:50 Room Air 06/24/17 11:20 36.9 85 18 96/48 (64) Room Air Physical Exam General Appearance: WELL-APPEARING, WD/WN, NO APPARENT DISTRESS Respiratory/Chest: chest non-tender, lungs clear, normal breath sounds, no respiratory distress, no accessory muscle use Cardiovascular: regular rate, rhythm, no edema, no gallop, no JVD, no murmur Abdomen: normal bowel sounds, non tender, soft, no organomegaly, no pulsatile mass Fundus: Firm Extremities: normal range of motion, non-tender, normal inspection, no pedal edema, no calf tenderness Laboratory Results Last 24 Hours Test 06/25/17 07:27 White Blood Count 14.70 K/uL Red Blood Count 3.23 M/uL Hemoglobin 9.9 g/dL Hematocrit 28.5 % Mean Corpuscular Volume 88.2 fL Mean Corpuscular Hemoglobin 30.7 pg Mean Corpuscular Hemoglobin Concent 34.7 g/dl RDW Standard Deviation 46.2 fL RDW Coefficient of Variation 14.2 % Platelet Count 256 K/uL Mean Platelet Volume 9.1 fL Assessment and Plan Post- Day Number: 2 Continue Routine Care: PPd #2 pt doing well d/c hoe with instructions
[2017-06-25] MEDS ORDERED: MTR600X PO (10:08)
[2017-06-25] MEDS: DOCUSATE SODIUM 100 MG CAP PO SCH (10:09)
[2017-06-25] MEDS: FERROUS SULFATE 325 MG TAB PO SCH (10:09)
[2017-06-25] MEDS: PRENATAL VITAMIN TAB PO SCH (10:10)
--- NOTE | 2017-06-25 10:10 | Discharge Instructions ---
Discharge Instructions Date of Service Jun 25, 2017. Admission Reason for Admission: LABOR Discharge Discharge Diagnosis / Problem: Discharge Goals Goal(s): Routine recovery after delivery Activity Recommendations Activity Limitations: as noted below ACTIVITY RECOMMENDATIONS: * Gradual return to full activity over the next 2-3 weeks. * No lifting - nothing heavier than baby over the next 2-3 weeks. * Do not engage in vigorous exercise, sexual activity or sports until cleared by your physician. * Do not drive or operate any motorized equipment until cleared by your physician. * You may shower/bathe daily. BREAST CARE: If you are not breast feeding: * Wear a supportive bra 24 hours a day for one to two weeks. * Avoid stimulating your breasts and nipples as much as possible during the first few weeks after delivery. * When taking a shower, have the warm water hit your back, not breasts. * When your breasts feel full, apply ice packs. Usually three to four times a day helps ease the discomfort. * Take a mild pain medication (Tylenol/Motrin) when you are uncomfortable. If breast feeding: * Use breast milk to lubricate nipples. Lansinoh cream may be used for sore nipples. You do not need to remove cream prior to breast feeding. If using a different brand of cream, check the label for directions regarding removal of cream prior to nursing. * Wear a supportive bra. * If having problems with breasts or breast feeding, call a sales consultant insurance or your health care provider. EPISIOTOMY CARE: After delivery, if you have an episiotomy (stitches), the following steps will ease discomfort and aid healing. * For the first 24 hours after delivery, place ice packs next to your episiotomy to help reduce swelling. * After the first 24 hour-period, sitz baths, either portable or in the tub, are suggested. A shower with a shower arm sprayed over the episiotomy may be comforting. * Noa care should be done after each voiding and bowel movement. Squirt warm water from a plastic bottle over the perineum (region of the body between the anus and urinary opening) and pat dry. * Use Dermoplast to ease discomfort. Shake container. Angela directly over the episiotomy. * Place a Tucks on a clean sanitary pad next to your episiotomy. OVER THE COUNTER MEDICATION: * For discomfort or pain, you may use Acetaminophen (Tylenol), Ibuprofen (Advil ), or Naproxen (Aleve) following the package directions. * For constipation you may use Colace following the package directions. SPECIAL CARE INSTRUCTIONS: When you are discharged from the hospital, it is important for you to follow the instructions listed below: * During the first week at home, you should be able to care for yourself and your baby. In addition, the usual light household activities are encouraged. * Limit your activities to the way you feel. Do not try to clean the house or move furniture. Be sensible. * If you actively engage in sports and have done so up until the time of your delivery, you may resume these activities as soon as you feel able. This may take up to one month or even longer. Use good judgment. * Continue to take your vitamins for at least six weeks after the of your baby. * Your diet need not be limited unless you were on a special diet before your delivery. Breast-feeding mothers need around 2500 calories per day and at least 64-80 ounces of fluid per day (8 to 10 glasses). * You should eat foods from the four major food groups. Crash diets or fad diets are to be avoided. Eating lean meats, fresh fruits and vegetables, low-fat dairy products, high fiber foods and a regular exercise program, will help you get back to your pre- weight without putting your health at risk. * Constipation is sometimes a problem after delivery. Take a mild laxative as needed. If breast feeding, Milk of Magnesia is acceptable to use. You may use a suppository or Fleets enema if no episiotomy. * A daily shower or tub bath is suggested. Be sure to thoroughly and gently dry the perineum. * A bloody vaginal discharge will usually continue until around four weeks post . A small amount of bleeding may continue for as long as six weeks. Vaginal discharge changes from the bright red bleeding after delivery to pink then brownish and finally yellowish-pink before becoming white and disappearing. * Bleeding may increase with activity. Your first period may come in 4-8 weeks. If you are breast feeding, your period may be delayed even longer. * [place] (sex) can begin whenever both you and your partner feel comfortable and do not have any form of genital infection. It is recommended that you wait until after your return appointment and discuss with your physician. If you have questions, please talk to your health care practitioner. A condom should be used to prevent infection and . * Foreplay, gentle intercourse and lubrication is very important the first several times to prevent pain. A water-based lubricant such as K-Y jelly or Astroglide may be used. * Tampons may be used six weeks after delivery. * Douching should be avoided for 6 weeks after delivery. * If you have RH negative blood and your baby is RH positive, you will receive RHOGAM by injection prior to discharge. The nurse will give you a card to keep with you that has the date and place that you received RHOGAM after delivery. * During your care, you had a Rubella screen done to check for the presence of rubella antibodies in your blood. If your test was negative, you will receive a Rubella vaccine prior to discharge. This vaccine may cause a fever, soreness at the injection site and flu-like symptoms. If these symptoms persist, notify your health care practitioner. is not advised for three months after a Rubella vaccine. There is a higher chance of having a baby with defects if conceived within three months of getting the vaccine. * If you were discharged 24 hours from delivery or before 48 hours: Visiting nurses will come to your home 48 hours after discharge to assess you and your baby. The visiting nurse will meet with you while you are in the hospital to arrange a time and get directions to your home. * Verbalizes understanding of car seat law as reviewed with patient nursing. * Car Seat hand-out given and reviewed with patient by nursing. * Shaken baby information reviewed with patient by nursing. Call you doctor if: * Heavy bleeding (saturating several pads an hour) or passing clots the size of your fist. * A fever >101 degrees F (38.3 degrees C) on two occasions four hours apart and/or chills. * Unusual pain in the pelvic or vaginal areas. * "Baby Blues" lasting longer than two weeks. If you have any questions or concerns, call your health care practitioner at . FOLLOW-UP VISIT: * Please call the office at to schedule a 6 week examination. It is important you keep this appointment. * It is important for you to make arrangements for either yearly or twice yearly check-ups thereafter. . Current Hospital Diet Patient's current hospital diet: Regular OB Diet Discharge Diet Recommended Diet: Regular Diet Pending Studies Studies pending at discharge: no Medical Emergencies . Who to Call and When: Medical Emergencies: If at any time you feel your situation is an emergency, please call 911 immediately. . Non-Emergent Contact Non-Emergency issues call your: Specialist . . "Provider Documentation" section prepared by Bernard Mccloud. . VTE Core Measure Inpt VTE Proph given/why not?: Treatment not indicated
[2017-06-25 11:15] VITALS: BP_DIAS 64; PULSE 65; TEMP 36.8
== END 2017-06-25 13:20 | disposition home or self-care (01) | DRG 775 ==
LOC: C.OPB 02:42 → C.LD 02:42 → C.OPB 04:33 → C.LD 04:33 → C.MS4N 06-24 00:04
PROVIDERS: ADMIT Obstetrics & Gynecology; ATTEND Obstetrics & Gynecology
PROC: 10E0XZZ Delivery of Products of Conception, External Approach (ICD-10-PCS; principal; 2017-06-23)
PROC: 0HQ9XZZ Repair Perineum Skin, External Approach (ICD-10-PCS; principal; 2017-06-23)
DX: O70.0 First degree perineal laceration during delivery (principal); O69.81X1 Labor and delivery complicated by cord around neck, without compression, fetus 1; Z3A.39 39 weeks gestation of pregnancy; Z37.0 Single live birth

== ENCOUNTER 2019-04-30 05:09 | Observation (INO) ==
[2019-04-30] MEDS ORDERED: MoRPHine SULFATE 4 MG/ML 1 ML CARP\\VIAL IV STA (06:02)
[2019-04-30] MEDS ORDERED: ONDANSETRON INJ 2 MG/ML 2 ML VIAL IV STA (06:02)
[2019-04-30 06:29] LABS: Basophils # (auto) 0.01 K/uL (0-0.2); Basophils % (auto) 0.1 %; Hematocrit (blood only) 36.4 % (37-47); Hemoglobin 12.7 g/dL (12.0-16.0); Immature Granulocytes # (auto) 0.04 K/uL (0.00-0.02); Immature Granulocytes % (auto) 0.2 %; Lymphocytes # (auto) 0.59 K/uL (1.2-3.4); Lymphocytes % (auto) 3.6 %; Mean Corpuscular Hgb Conc 34.9 g/dL (32-36); Mean Corpuscular Volume 81.6 fL (80-100); Mean Platelet Volume 9.3 fL (7.4-10.4); Monocytes # (auto) 0.53 K/uL (0.11-0.59); Monocytes % (auto) 3.2 %; Neutrophils # (auto) 15.29 K/uL (1.4-6.5); Neutrophils % (auto) 92.9 %; Platelet Count 325 K/uL (130-400); RDW Coefficient of Variation 12.9 % (11.5-14.5); RDW Standard Deviation 38.2 fL (36.4-46.3); Red Blood Count 4.46 M/uL (4.2-5.4); White Blood Count 16.46 K/uL (4.8-10.8)
[2019-04-30 06:42] LABS: INR 1.1 (0.9-1.1); Partial Thromboplastin Time 28.2 Seconds (21.0-31.0)
[2019-04-30] MEDS ORDERED: IOVERSOL 100ml IV PRN (06:44)
[2019-04-30 06:47] LABS: Alanine Aminotransferase 15 U/L (12-78); Albumin Level 4.4 gm/dl (3.4-5.0); Aspartate Aminotransferase 6 U/L (15-37); BUN Creatinine Ratio 17.5 (10-20); Blood Urea Nitrogen 15 mg/dl (7-18); Carbon Dioxide 24 mmol/L (21-32); Chloride 106 mmol/L (98-107); Est GFR (African American) 105.1; Est GFR (Non-African American) 90.7; Glucose 138 mg/dl (70-99); Potassium 3.4 mmol/L (3.5-5.1); Sodium 138 mmol/L (136-145)
[2019-04-30 06:51] LABS: Albumin Globulin Ratio 1.3 (0.9-2); Alkaline Phosphatase 86 U/L (45-117); Bilirubin,Total 0.6 mg/dl (0.2-1); Globulin 3.5 gm/dl (2.5-4.0); Total Protein 7.9 gm/dl (6.4-8.2); Troponin I < 0.015 ng/ml (0-0.045)
[2019-04-30] MEDS ORDERED: ONDANSETRON INJ 2 MG/ML 2 ML VIAL IV PRN ×3 (08:18→15:43)
[2019-04-30] MEDS ORDERED: SODIUM CHLORIDE 0.9% 1000ML 1,000 ML IV ONE (08:18)
[2019-04-30] MEDS ORDERED: MoRPHine SULFATE 4 MG/ML 1 ML CARP\\VIAL IV PRN ×2 (08:18→15:43)
--- NOTE | 2019-04-30 08:18 | CT Scan Report ---
ABDOMEN AND PELVIS CT WITH IV CONTRAST CT DOSE: 421.80 mGy.cm HISTORY: epigastric abdominal pain TECHNIQUE: Multiaxial CT images of the abdomen and pelvis were performed following the use of intrave nous contrast. A dose lowering technique was utilized adhering to the principles of ALARA. COMPARISON STUDY: Abdominal ultrasound 04/2019. FINDINGS: The lung bases are clear. No pneumoperitoneum. No pneumatosis. No fractures within the visu alized osseous structures. The liver, gallbladder, pancreas, spleen, kidneys, and adrenal glands are unremarkable. No retroperitoneal lymphadenopathy. The bladder, uterus, bilateral adnexa are unremarka ble. Questionable thickening at the rectum is likely due to underdistention. No evidence for bowel ob struction. A normal appendix is not identified. There appears to be a dilated tubular structure withi n the right lower quadrant on images 296 through 311 which measures up to 11 mm in diameter. This is concerning for an abnormal appendix. However, this is difficult to separate from the adjacent small b owel loops. IMPRESSION: A normal appendix is not identified. There appears to be a dilated tubular structure within the right lower quadrant which measures up to 11 mm in diameter. This is concerning for an abnormal appendix i n the setting of an acute appendicitis. However, this is difficult to separate from the adjacent smal l bowel loops. Therefore, repeat abdomen and pelvis CT following oral contrast is recommended for fur ther evaluation. Electronically signed by: Coleman Kelley M.D. 04/30/2019 8:15 AM
--- NOTE | 2019-04-30 08:31 | Emergency Department Note ---
ED Provider Note Patient was signed out to me by Maricamren Bill PA-C. Please see her dictation for full history and physical. Patient's CT scan with contrast was pending at time of shift change. She remained stable while in the department. I did reevaluate the patient. She stated her abdominal discomfort was increasing, but was still tolerable. She did not require any further pain medication initially. CT scan with contrast revealed an acute appendicitis. I did contact Dr. Serrato from general surgery regarding this finding. He did come to the ED to evaluate the patient. Please see his dictation for final management. She did go to the OR for acute appendectomy. Patient did require 1 additional dose of morphine 4 mg IV prior to departure for the OR. Impression & Plan Abdominal pain Past Med/Surg History Medical History ADHD Acne Social History Preferred Language: South Korean Communication Ability: Effective Dough Sheeter Required: No Beliefs That Will Affect Care: None Current Living Situation: Spouse and Family Other Information That Helps Us Care for You: No Feels Safe at Home: Yes Safety Concerns: Feels Safe At This Time Smoking Status: Current every day smoker Tobacco Type: cigarettes ; Cigarettes Per Day: 3 ; Do You Dip or Chew Tobacco: No ; Second Hand Exposure: No ; Tobacco Cessation Education Requested by Patient: No Hx Alcohol Use: Yes Hx Substance Use: No Results & Data Vital Signs Vital Signs - 24 hr 04/30/19 05:02 04/30/19 06:03 04/30/19 06:34 Temperature 36.8 C Temperature Source Oral Sepsis Recent Fever Within 48 Hours No Sepsis Action Taken by Nursing No Action Required Pulse Rate 90 Pulse Rate [Left Apical] 93 H Pulse Rhythm [Left Apical] Pulse Strength [Left Apical] Respiratory Rate 20 20 Respiratory Effort / Characteristics Normal for Patient Normal for Patient Respiratory Depth Respiratory Pattern Blood Pressure 112/44 L Blood Pressure [Right Arm] 116/56 L Blood Pressure Mean 66 Blood Pressure Mean [Right Arm] 76 Blood Pressure Position Sitting Blood Pressure Position [Right Arm] Lying Pulse Oximetry 100 100 100 Oxygen Delivery Method Room Air Room Air Room Air 04/30/19 07:00 04/30/19 09:02 04/30/19 11:13 Temperature Temperature Source Sepsis Recent Fever Within 48 Hours Sepsis Action Taken by Nursing Pulse Rate Pulse Rate [Left Apical] 85 88 85 Pulse Rhythm [Left Apical] Regular Regular Pulse Strength [Left Apical] Normal Normal Respiratory Rate 18 18 20 Respiratory Effort / Characteristics Non-Labored Spontaneous Non-Labored Spontaneous Non-Labored Respiratory Depth Normal Normal Normal Respiratory Pattern Regular Regular Regular Blood Pressure Blood Pressure [Right Arm] 115/62 118/64 91/52 L Blood Pressure Mean Blood Pressure Mean [Right Arm] 79 82 65 Blood Pressure Position Blood Pressure Position [Right Arm] Lying Lying Pulse Oximetry 98 97 99 Oxygen Delivery Method Room Air Room Air Room Air 04/30/19 12:18 04/30/19 13:04 04/30/19 13:13 Temperature Temperature Source Sepsis Recent Fever Within 48 Hours Sepsis Action Taken by Nursing Pulse Rate Pulse Rate [Left Apical] 87 79 Pulse Rhythm [Left Apical] Pulse Strength [Left Apical] Respiratory Rate 17 16 Respiratory Effort / Characteristics Non-Labored Non-Labored Respiratory Depth Normal Normal Respiratory Pattern Regular Regular Blood Pressure Blood Pressure [Right Arm] 96/54 L 94/51 L Blood Pressure Mean Blood Pressure Mean [Right Arm] 68 65 Blood Pressure Position Blood Pressure Position [Right Arm] Pulse Oximetry 100 100 95 Oxygen Delivery Method Room Air Room Air Room Air Laboratory Data Result diagrams: 04/30/19 06:17 04/30/19 06:17 Lab Results 04/30/19 04/30/19 04/30/19 Range/Units 06:17 06:17 06:17 WBC 16.46 H (4.8-10.8) K/uL RBC 4.46 (4.2-5.4) M/uL Hgb 12.7 (12.0-16.0) g/dL Hct 36.4 L (37-47) % MCV 81.6 (80-100) fL MCH 28.5 (25-34) pg MCHC 34.9 (32-36) g/dL RDW Std Deviation 38.2 (36.4-46.3) fL RDW Coeff of Zoila 12.9 (11.5-14.5) % Plt Count 325 (130-400) K/uL MPV 9.3 (7.4-10.4) fL Immature Gran % (Auto) 0.2 % Neut % (Auto) 92.9 % Lymph % (Auto) 3.6 % [place] % (Auto) 3.2 % Eos % (Auto) 0.0 % Baso % (Auto) 0.1 % Immature Gran # (Auto) 0.04 H (0.00-0.02) K/uL Neut # (Auto) 15.29 H (1.4-6.5) K/uL Lymph # (Auto) 0.59 L (1.2-3.4) K/uL [place] # (Auto) 0.53 (0.11-0.59) K/uL Eos # (Auto) 0.00 (0-0.5) K/uL Baso # (Auto) 0.01 (0-0.2) K/uL PT 11.0 (9.0-12.0) Seconds INR 1.1 (0.9-1.1) APTT 28.2 (21.0-31.0) Seconds PTT Ratio 1.0 Sodium 138 (136-145) mmol/L Potassium 3.4 L (3.5-5.1) mmol/L Chloride 106 (98-107) mmol/L Carbon Dioxide 24 (21-32) mmol/L Anion Gap 8.0 (3-11) BUN 15 (7-18) mg/dl Creatinine 0.88 (0.6-1.2) mg/dl Est Cr Clr Drug Dosing 98.0 ml/min Est GFR ( Amer) 105.1 Est GFR (Non-Af Amer) 90.7 BUN/Creatinine Ratio 17.5 (10-20) Glucose 138 H (70-99) mg/dl Calcium 9.0 (8.5-10.1) mg/dl Total Bilirubin 0.6 (0.2-1) mg/dl AST 6 L (15-37) U/L ALT 15 (12-78) U/L Alkaline Phosphatase 86 (45-117) U/L Troponin I < 0.015 (0-0.045) ng/ml Total Protein 7.9 (6.4-8.2) gm/dl Albumin 4.4 (3.4-5.0) gm/dl Globulin 3.5 (2.5-4.0) gm/dl Albumin/Globulin Ratio 1.3 (0.9-2) HCG, Qual (Negative) 04/30/19 Range/Units 06:18 WBC (4.8-10.8) K/uL RBC (4.2-5.4) M/uL Hgb (12.0-16.0) g/dL Hct (37-47) % MCV (80-100) fL MCH (25-34) pg MCHC (32-36) g/dL RDW Std Deviation (36.4-46.3) fL RDW Coeff of Zoila (11.5-14.5) % Plt Count (130-400) K/uL MPV (7.4-10.4) fL Immature Gran % (Auto) % Neut % (Auto) % Lymph % (Auto) % [place] % (Auto) % Eos % (Auto) % Baso % (Auto) % Immature Gran # (Auto) (0.00-0.02) K/uL Neut # (Auto) (1.4-6.5) K/uL Lymph # (Auto) (1.2-3.4) K/uL [place] # (Auto) (0.11-0.59) K/uL Eos # (Auto) (0-0.5) K/uL Baso # (Auto) (0-0.2) K/uL PT (9.0-12.0) Seconds INR (0.9-1.1) APTT (21.0-31.0) Seconds PTT Ratio Sodium (136-145) mmol/L Potassium (3.5-5.1) mmol/L Chloride (98-107) mmol/L Carbon Dioxide (21-32) mmol/L Anion Gap (3-11) BUN (7-18) mg/dl Creatinine (0.6-1.2) mg/dl Est Cr Clr Drug Dosing ml/min Est GFR ( Amer) Est GFR (Non-Af Amer) BUN/Creatinine Ratio (10-20) Glucose (70-99) mg/dl Calcium (8.5-10.1) mg/dl Total Bilirubin (0.2-1) mg/dl AST (15-37) U/L ALT (12-78) U/L Alkaline Phosphatase (45-117) U/L Troponin I (0-0.045) ng/ml Total Protein (6.4-8.2) gm/dl Albumin (3.4-5.0) gm/dl Globulin (2.5-4.0) gm/dl Albumin/Globulin Ratio (0.9-2) HCG, Qual Negative (Negative) Administered Medications Lactated Ringer's (Lr) 1,000 mls @ 80 mls/hr IV .[id number] SUSANA Stop: 05/30/19 15:59 Last Admin: 04/30/19 15:30 Dose: 80 mls/hr Documented by: [id number] Lorazepam (Ativan) 0.5 mg PO Q8 PRN PRN Reason: Anxiety Stop: 05/30/19 16:53 Last Admin: 04/30/19 17:07 Dose: 0.5 mg Documented by: [id number] Discontinued Medications Bupivacaine HCl (Marcaine 0.5% Mpf) Confirm Administered Dose 30 ml .ROUTE .STK- MED ONE Stop: 04/30/19 13:10 Last Admin: 04/30/19 14:00 Dose: 20 ml Documented by: [id number] Fentanyl Citrate (Fentanyl Citrate) 50 mcg IV Q5M PRN PRN Reason: PACU Use Only-Pain Stop: 04/30/19 18:41 Last Admin: 04/30/19 15:00 Dose: 50 mcg Documented by: [id number] Admin: 04/30/19 14:55 Dose: 50 mcg Documented by: [id number] Sodium Chloride (Nss 1000ml) 1,000 mls @ 999 mls/hr IV .Q1H1M ONE Stop: 04/30/19 09:18 Last Infusion: 04/30/19 09:48 Dose: 0 mls/hr Documented by: [id number] Admin: 04/30/19 08:43 Dose: 999 mls/hr Documented by: [id number] Cefoxitin Sodium (Mefoxin) 2,000 mg in 60 mls @ 100 mls/hr IV NOW STA Stop: 04/30/19 12:56 Last Infusion: 04/30/19 13:10 Dose: 0 mls/hr Documented by: [id number] Admin: 04/30/19 12:32 Dose: 100 mls/hr Documented by: [id number] Ioversol (Optiray 320 100ml) 92 ml IV ONCE PRN PRN Reason: Interaction Checking Stop: 05/04/19 06:43 Last Admin: 04/30/19 06:44 Dose: 92 ml Documented by: [id number] Morphine Sulfate (Morphine Sulfate) 4 mg IV NOW STA Stop: 04/30/19 06:03 Last Admin: 04/30/19 06:29 Dose: 4 mg Documented by: [id number] Ondansetron HCl (Zofran) 4 mg IV NOW STA Stop: 04/30/19 06:03 Last Admin: 04/30/19 06:29 Dose: 4 mg Documented by: [id number] Ondansetron HCl (Zofran) 4 mg IV Q4H PRN PRN Reason: Nausea Stop: 05/30/19 08:17 Last Admin: 04/30/19 09:48 Dose: 4 mg Documented by: [id number] Discharge Plan Visit Data *Final* Discharge Date/Time: 04/30/19 13:13 Chief Complaint: Abdominal Pain Stated Complaint: severe abdominal pain, cramping ED Provider: Sonya Sifuentes ED Midlevel Provider: Demond Cali Discharge Problem: Abdominal pain Patient Disposition: Still a Patient Condition: Good Discharge Instructions Interventions: ED Discharge Assessment Last Done: 04/30/19 13:13 Discharge Problem: Abdominal pain Qualifiers: Abdominal location: epigastric Qualified Code(s): R10.13 - Epigastric pain
--- NOTE | 2019-04-30 08:40 | Emergency Department Note ---
History of Present Illness General Chief Complaint: Abdominal Pain Stated Complaint: severe abdominal pain, cramping Time Seen by Provider: 04/30/19 08:25 Source: patient Mode of arrival: EMS Limitations: no limitations History of Present Illness Provider Complaint: abdominal pain Onset (ago): 10 hour(s) Pain Consistency: intermittent and colicky Location: epigastric Radiation: none Migration to: no migration Severity: severe Maximum Pain Intensity: 10 Current Pain Intensity: 10 Quality: + sharp Relieved By: + medication Exacerbated By: + movement Associated Symptoms: + nausea, + vomiting and + diarrhea Treatments prior to arrival: NSAIDs and prescription analgesics This 24-year-old female patient presents emergency department today via EMS just 8 hours with complaints of epigastric abdominal pain. The pain began after eating a chicken edmundo from a restaurant. The patient states her pain is associated nausea, vomiting, diarrhea. I did see her earlier in the night and treated her for possible gastroenteritis and nonspecific abdominal pain. The patient was given IV fluids, Zofran, and morphine while here in the ED. Her symptoms completely resolved and there have been no ongoing tenderness to palpation on repeat abdominal examination. The patient states she went home, went to bed, and awoke approximately 2 hours later with severely worsening nausea and epigastric abdominal pain. She denies any ongoing vomiting, diarrhea, or constipation. She continues to deny any fever, chills, numbness, tingling, chest pain, difficulty breathing, flank pain, urinary symptoms, or other specific symptoms the last menstrual period began 5 days ago. Related Data Date of Last Menstrual Period: 04/25/19 Patient Confirmed : No Home Medications Home Medications Medication Instructions Recorded Confirmed Type dextroamphetamine 5 mg PO QID 04/29/19 04/30/19 History spironolactone [Aldactone] 50 mg PO BID 04/29/19 04/30/19 History Allergies Allergy/AdvReac Type Severity Reaction Status Date / Time prochlorperazine AdvReac Intermediate TERRIBLE Verified 04/30/19 05:38 PANIC ATTACKS Past Med/Surg History Social History Preferred Language: Samoan Feels Safe at Home: Yes Smoking Status: Current every day smoker Review of Systems A total of 10 systems reviewed and were otherwise negative Physical Exam Vital Signs: Vital Signs - 24 hr 04/30/19 05:02 04/30/19 06:03 04/30/19 06:34 Temperature 36.8 C Temperature Source Oral Sepsis Recent Feve r Within 48 Hours No Sepsis Action Take n by Nursing No Action Required Pulse Rate 90 Pulse Rate [Left A pical] 93 H Pulse Rhythm [Left Apical] Pulse Strength [Le ft Apical] Respiratory Rate 20 20 Respiratory Effort / Characteristics Normal for Patient Normal for Patient Respiratory Depth Respiratory Patter n Blood Pressure 112/44 L Blood Pressure [Ri ght Arm] 116/56 L Blood Pressure Hay[place] n 66 Blood Pressure Haydee n [Right Arm] 76 Blood Pressure Pos ition Sitting Blood Pressure Pos ition [Right Arm] Lying Pulse Oximetry 100 100 100 Oxygen Delivery Me thod Room Air Room Air Room Air 04/30/19 07:00 Temperature Temperature Source Sepsis Recent Feve r Within 48 Hours Sepsis Action Take n by Nursing Pulse Rate Pulse Rate [Left A pical] 85 Pulse Rhythm [Left Apical] Regular Pulse Strength [Le ft Apical] Normal Respiratory Rate 18 Respiratory Effort / Characteristics Non-Labored Sponta neous Respiratory Depth Normal Respiratory Patter n Regular Blood Pressure Blood Pressure [Ri ght Arm] 115/62 Blood Pressure [place] n Blood Pressure [place] n [Right Arm] 79 Blood Pressure Pos ition Blood Pressure Pos ition [Right Arm] Lying Pulse Oximetry 98 Oxygen Delivery Me thod Room Air Physical Exam: VITALS: Vitals are noted on the nurse's note and reviewed by myself. Vital signs stable. GENERAL: This is a 24-year-old white female, in no acute distress, nondiaphoretic, well-developed well-nourished. SKIN: The skin was without rashes, erythema, edema, or bruising. There is no tenting of the skin. Capillary reflex less than 2 seconds. HEAD: Normocephalic atraumatic. NECK: Supple without nuchal rigidity. No lymphadenopathy. Cervical spine is no ntender. No JVD. HEART: Regular rate and rhythm without murmurs gallops or rubs. LUNGS: Clear to auscultation bilaterally without wheezes, rales or rhonchi. No dullness to percussion. No retractions or accessory muscle use. ABDOMEN: Positive bowel sounds x 4. Normal tympanic percussion. Epigastric tenderness palpation. The abdomen is otherwise soft, nontender, without masses or organomegaly. Buckley sign negative. No guarding or rebound tenderness. No tenderness over McBurney's point. No referred tenderness. MUSCULOSKELETAL: No muscle atrophy, erythema, or edema noted. Full range of motion without joint tenderness in all extremities. No tenderness to palpation. Normal gait. Strength 5/5 throughout. NEURO: Patient was alert and oriented to person place and time. Normal sensati on to light and sharp touch. Deep tendon reflexes 2+ throughout. No focal neurological deficits. Course The patient was seen and evaluated as above. IV access obtained, labs drawn. I recommended CT with IV and oral contrast. Patient states she does not feel that she will be able to tolerate the oral contrast. She is actively vomiting at this time. I did discuss the potential for the need for repeat CT imaging if we are unable to see all of the structures without the oral contrast. The patient verbalized understanding and agrees to move forward with IV contrast only scan. Imaging performed and reviewed by myself and radiologist as above. Received a phone call from the radiologist that he is concerned for possible acute appendicitis with a dilated tubular structure within the right lower quadrant which measures up to 11 mm in diameter. He is unclear if this is an acute appendicitis versus an adjacent small bowel loop. He did recommend repeat abdomen/pelvis CT with oral contrast for further evaluation. Labs reviewed by myself. I discussed the findings and recommendation by radiologist with the patient at bedside. She was agreeable with repeat imaging. Repeat abdominal examination performed. She is now complaining of right lower quadrant tenderness to palpation. She states her symptoms have significantly improved with the IV morphine and Zofran. She does complain of a dry mouth and requests a drink. I advised her that she is n.p.o. except for any medication given. Initiated IV fluids. The patient was signed out to Demond Cali PA-C at the end of my shift, pending CT of the abdomen/pelvis with oral contrast. Please see his dictation regarding ongoing management care of this patient. Administered Medications Ioversol (Optiray 320 100ml) 92 ml IV ONCE PRN PRN Reason: Interaction Checking Stop: 05/04/19 06:43 Last Admin: 04/30/19 06:44 Dose: 92 ml Documented by: [id number] Discontinued Medications Morphine Sulfate (Morphine Sulfate) 4 mg IV NOW STA Stop: 04/30/19 06:03 Last Admin: 04/30/19 06:29 Dose: 4 mg Documented by: [id number] Ondansetron HCl (Zofran) 4 mg IV NOW STA Stop: 04/30/19 06:03 Last Admin: 04/30/19 06:29 Dose: 4 mg Documented by: [id number] Medical Decision Making Differential Diagnosis + peptic ulcer disease, + biliary pathology, + UTI, + obstruction, + mesenteric ischemia, + aortic pathology, + infections, + inflammatory bowel disease, + renal colic, + ectopic (female), + ovarian torsion (female), + tubo-ovarian abscesses (female), + pelvic inflammatory disease (female), + abdominal pain, + appendicitis, + calculus of kidney, + constipation, + diverticulitis, + endometriosis, + gastroenteritis, + pancreatitis and + small bowel obstruction Laboratory Data Attestation: I reviewed the patient's lab results. Leukocytosis of 16,000. This has increased from the patient's earlier visit. Next normal. Renal, hepatic function electrolytes without significant abnormality. Troponin negative. Result diagrams: 04/30/19 06:17 04/30/19 06:17 Lab Results 04/30/19 04/30/19 04/30/19 Range/Units 06:17 06:17 06:17 WBC 16.46 H (4.8-10.8) K/uL RBC 4.46 (4.2-5.4) M/uL Hgb 12.7 (12.0-16.0) g/dL Hct 36.4 L (37-47) % MCV 81.6 (80-100) fL MCH 28.5 (25-34) pg MCHC 34.9 (32-36) g/dL RDW Std Deviation 38.2 (36.4-46.3) fL RDW Coeff of Zoila 12.9 (11.5-14.5) % Plt Count 325 (130-400) K/uL MPV 9.3 (7.4-10.4) fL Immature Gran % (Auto) 0.2 % Neut % (Auto) 92.9 % Lymph % (Auto) 3.6 % [place] % (Auto) 3.2 % Eos % (Auto) 0.0 % Baso % (Auto) 0.1 % Immature Gran # (Auto) 0.04 H (0.00-0.02) K/uL Neut # (Auto) 15.29 H (1.4-6.5) K/uL Lymph # (Auto) 0.59 L (1.2-3.4) K/uL [place] # (Auto) 0.53 (0.11-0.59) K/uL Eos # (Auto) 0.00 (0-0.5) K/uL Baso # (Auto) 0.01 (0-0.2) K/uL PT 11.0 (9.0-12.0) Seconds INR 1.1 (0.9-1.1) APTT 28.2 (21.0-31.0) Seconds PTT Ratio 1.0 Sodium 138 (136-145) mmol/L Potassium 3.4 L (3.5-5.1) mmol/L Chloride 106 (98-107) mmol/L Carbon Dioxide 24 (21-32) mmol/L Anion Gap 8.0 (3-11) BUN 15 (7-18) mg/dl Creatinine 0.88 (0.6-1.2) mg/dl Est Cr Clr Drug Dosing 98.0 ml/min Est GFR ( Amer) 105.1 Est GFR (Non-Af Amer) 90.7 BUN/Creatinine Ratio 17.5 (10-20) Glucose 138 H (70-99) mg/dl Calcium 9.0 (8.5-10.1) mg/dl Total Bilirubin 0.6 (0.2-1) mg/dl AST 6 L (15-37) U/L ALT 15 (12-78) U/L Alkaline Phosphatase 86 (45-117) U/L Troponin I < 0.015 (0-0.045) ng/ml Total Protein 7.9 (6.4-8.2) gm/dl Albumin 4.4 (3.4-5.0) gm/dl Globulin 3.5 (2.5-4.0) gm/dl Albumin/Globulin Ratio 1.3 (0.9-2) Imaging Data Radiologist's Impression: ABDOMEN AND PELVIS CT WITH IV CONTRAST CT DOSE: 421.80 mGy.cm HISTORY: epigastric abdominal pain TECHNIQUE: Multiaxial CT images of the abdomen and pelvis were performed following the use of intravenous contrast. A dose lowering technique was utilized adhering to the principles of ALARA. COMPARISON STUDY: Abdominal ultrasound 04/2019. FINDINGS: The lung bases are clear. No pneumoperitoneum. No pneumatosis. No fractures within the visualized osseous structures. The liver, gallbladder, pancreas, spleen, kidneys, and adrenal glands are unremarkable. No retroperitoneal lymphadenopathy. The bladder, uterus, bilateral adnexa are unremarkable. Questionable thickening at the rectum is likely due to underdistention. No evidence for bowel obstruction. A normal appendix is not identified. There appears to be a dilated tubular structure within the right lower quadrant on images 296 through 311 which measures up to 11 mm in diameter. This is concerning for an abnormal appendix. However, this is difficult to separate from the adjacent small bowel loops. IMPRESSION: A normal appendix is not identified. There appears to be a dilated tubular structure within the right lower quadrant which measures up to 11 mm in diameter. This is concerning for an abnormal appendix in the setting of an acute appendicitis. However, this is difficult to separate from the adjacent small bowel loops. Therefore, repeat abdomen and pelvis CT following oral contrast is recommended for further evaluation. Electronically signed by: Coleman Kelley M.D. 04/30/2019 8:15 AM ECG Data Attestation: I personally reviewed and interpreted this ECG as follows: Indication: abdominal pain Rate (beats per minute): 111 Rhythm: sinus tachycardia Findings: no ST elevation, no acute ischemic change and no ectopy Comparison ECG Date: from (04/29/19) Change: no significant change (however heartrate has increased) Blood Pressure Blood Pressure Findings: Normal blood pressure MDM Narrative This 24-year-old female patient presents the emergency department today for the second time in approximately 8 hours complaining of epigastric abdominal pain. Symptoms are concerning for possible bowel etiology. I did recommend he had a CT scan of the abdomen/pelvis with IV and oral contrast, but the patient does not feel that she will be able to tolerate the oral contrast. We did elect to perform a CT scan with only IV contrast, but unfortunately this was inconclusive for acute appendicitis. There was concern for possible acute appendicitis, and given the patient's elevated white blood cell count, we did elect to perform repeat imaging. The patient has not experienced a fever and her appetite was n ormal up until this evening. She denied any lower abdominal pain, and there was no tenderness to palpation until I reassessed her this morning and questioned whether or not this could be her appendix. The patient was medicated with IV fluids, morphine, and Zofran. Her symptoms did almost completely subside with these medications. She was signed out to Demond Cali PA-C at the end of my shift pending the repeat CT results. Please see his dictation regarding final disposition and management of the patient. The chart was completed utilizing [employer] voice recognition software. Grammatical errors, random word insertions, pronoun errors, and incomplete sentences are an occasional consequence of this system due to software limitations, ambient noise, and hardware issues. Any formal questions or concerns about the content, text, or information contained within the body of t his dictation should be directly addressed to the provider for clarification. Impression & Plan Abdominal pain Discharge Plan Visit Data Chief Complaint: Abdominal Pain Stated Complaint: severe abdominal pain, cramping ED Provider: Sonya Sifuentes ED Midlevel Provider: Demond Cali Discharge Problem: Abdominal pain Patient Disposition: Still a Patient Forms Stand Alone Forms: My [facility] Prescriptions Prescriptions: No Action dextroamphetamine 10 mg tablet 5 mg PO QID RF: 0 spironolactone [Aldactone] 50 mg tablet 50 mg PO BID RF: 0 Referrals Referrals: Harley Jay DO [Primary Care Provider] - Discharge Problem: Abdominal pain Qualifiers: Abdominal location: epigastric Qualified Code(s): R10.13 - Epigastric pain
--- NOTE | 2019-04-30 11:15 | CT Scan Report ---
ABDOMEN AND PELVIS CT WITH ORAL CONTRAST CT DOSE: 366.10 mGy.cm HISTORY: Generalized abdominal pain, ?appendicitis TECHNIQUE: Multiaxial CT images of the abdomen and pelvis were performed following the use of oral co ntrast. A dose lowering technique was utilized adhering to the principles of ALARA. COMPARISON STUDY: Abdomen and pelvis CT 04/30/2019. FINDINGS: The lung bases are clear. No pneumoperitoneum. No pneumatosis. The unenhanced liver, gallbl adder, pancreas, spleen, adrenal glands, and kidneys are unremarkable. There is contrast within the u rinary system from the recent CT. No retroperitoneal lymphadenopathy. No evidence for bowel obstructi on. The bladder, uterus, bilateral adnexa are unremarkable. There is a tubular structure extending fr om the cecal base which appears blind-ending best seen on images 277 through 298. This appears to rep resent the appendix with the tip on image 280. This measures up to 12 mm in diameter. This does not f ill with contrast. Therefore, this is consistent with acute appendicitis. No perforation or abscess i dentified at this time. IMPRESSION: Above findings consistent with acute appendicitis. Electronically signed by: Coleman Kelley M.D. 04/30/2019 11:12 AM
[2019-04-30] MEDS ORDERED: cefOXitin 2,000 MG/60 ML BAG IV STA ×2 (12:14→12:21)
--- NOTE | 2019-04-30 12:22 | History & Physical Report ---
Date of Service April 30, 2019 Assessment & Plan (1) Appendicitis: Initial CT and CT repeated with contrast suggestive of appendicitis. Exam and labs also consistent with appendicitis. Will plan for laparoscopic appendectomy this afternoon. History of Present Illness Primary Care Provider: Harley Jay DO 24 y/o female with mid abdominal pain and diarrhea that began last night after dinner. Was evaluated in ED, pain improved, GB ultrasound was negative. She was discharged home. Pain returned and was severe around 2:30 AM, brought to ED by EMS. Pain is now periumbilical, again improved after morphine. No N/V, F/C. Allergies Allergy/AdvReac Type Severity Reaction Status Date / Time prochlorperazine AdvReac Intermediate TERRIBLE Verified 04/30/19 05:38 PANIC ATTACKS Past Med/Surg History Medical History ADHD Acne Social History Preferred Language: Romansh Feels Safe at Home: Yes Smoking Status: Current every day smoker Review of Systems Constitutional: no fever, no chills and no anorexia Gastrointestinal: + abdominal pain; no nausea and no vomiting Physical Exam Constitutional: WD/WN, vitals as above Respiratory: normal respiratory effort, lungs clear to auscultation Cardiovascular: RRR, no murmur, no edema Gastrointestinal (Abdomen): Inspection/Auscultation: abdomen not distended Percussion/Palpation: + abdomen tender (localized RLQ) and abdomen soft Skin: no rashes, warm and dry Results & Data Vital Signs (Past 12 Hours) Vital Signs Temp Pulse Pulse Resp BP BP Pulse Ox 04/30/19 11:13 85 20 91/52 L 99 04/30/19 09:02 88 18 118/64 97 04/30/19 07:00 85 18 115/62 98 04/30/19 06:34 93 H 20 116/56 L 100 04/30/19 06:03 100 04/30/19 05:02 36.8 C 90 20 112/44 L 100 Supervising Physician Co-Signing Physician Notes Patient seen and examined, labs and imaging reviewed, agree with above. 24-year-old female with abdominal pain and CT scan with IV contrast that suggested appendicitis, and CT with oral contrast that appears to confirm appendicitis. Vital signs stable, tender to palpation in the right lower quadrant with some guarding. White blood cell count 16, imaging as above. This likely represents acute appendicitis, we discussed her options, she elects for surgery. Plan for laparoscopic appendectomy. The risk of the procedure were discussed to include but not limited to bleeding, infection, conversion open, abscess, normal appendix, need for future more extensive surgery, damage to surrounding structures, and the risks of anesthesia. Preop antibiotics. Potential discharge this afternoon or tomorrow. PG Care Time/CCT Total # of Minutes Spent Total Time Spent with Patient: Total time spent is greater than 50% in coordination of care (as documented) at patient's floor/unit and/or counseling patient:
[2019-04-30] MEDS ORDERED: BUPIVACAINE 0.5 % 5 MG/1 ML MPF 30ML VIAL ONE (13:09)
[2019-04-30] MEDS ORDERED: fentaNYL citrate 100 MCG/2 ML VIAL ONE ×3 (13:12→14:17)
[2019-04-30] MEDS ORDERED: MIDAZOLAM HCL 1 MG/ML 2ML VIAL ONE (13:12)
[2019-04-30 13:18] LABS: Pregnancy Test, Serum Negative (Negative)
--- NOTE | 2019-04-30 13:33 | Anesthesiology Consultation ---
Date of Service April 30, 2019 Assessment & Plan (1) Encounter for pre-operative examination: Chart Review Chart Review: Acceptable Risk for Surgery and Patient NOT seen in Pre Admission Testing Consults Requested none ASA [id number] Proposed Anesthesia Anesthesia Type: General Risk / Benefits Reviewed With: PT / POA / Parent / Guardian, Accepts Plan and Informed Consent Obtained History Surgery Operation Date: 04/30/19 13:00 Proposed Procedures p Laparoscopic Appendectomy - Hubert Serrato, , FACS Height/Weight Height: 5 ft 6 in Weight: 71.3 kg Allergies Allergy/AdvReac Type Severity Reaction Status Date / Time prochlorperazine AdvReac Intermediate TERRIBLE Verified 04/30/19 05:38 PANIC ATTACKS Medications Home Medications Medication Instructions Recorded Confirmed Last Taken dextroamphetamine 5 mg PO QID 04/29/19 04/30/19 Unknown spironolactone [Aldactone] 50 mg PO BID 04/29/19 04/30/19 Unknown Active Medications Generic Name Dose Route Start Last Admin Trade Name Freq PRN Reason Stop Dose Admin Ioversol 92 ml 04/30/19 06:44 04/30/19 06:44 Optiray 320 100ml IV 05/04/19 06:43 92 ml ONCE PRN Administration Interaction Checking Ondansetron HCl 4 mg 04/30/19 08:18 04/30/19 09:48 Zofran IV 05/30/19 08:17 4 mg Q4H PRN Administration Nausea Past Medical History Medical History ADHD Acne Exercise / Class Metabolic Activity II 4-5 Yardwork/Stairs/Walk up hill Past Anesthesia History No Hx of Anesthesia Complications and No Family Hx of Anesthesia Complications History of PONV No Hx of PONV and No Hx of Motion Sickness Social History Smoking Status: Current every day smoker Physical Exam Vital Signs Last Vital Signs Temp 36.8 C 04/30/19 05:02 Pulse 79 04/30/19 13:04 Resp 16 04/30/19 13:04 BP 94/51 L 04/30/19 13:04 Pulse Ox 95 04/30/19 13:13 ENMT Mouth: no dentition abnormality Thyromental Distance: > or= 3.5 Finger Breadths Mallampati Class: II Neck normal visual inspection Respiratory normal respiratory effort Auscultation: lungs clear to auscultation bilaterally Cardiovascular Rate/Rhythm: regular rate and regular rhythm Psychiatric Orientation: alert Testing Laboratory Results 04/30/19 06:17 04/30/19 06:17 PT 11.0 Seconds (9.0-12.0) 04/30/19 06:17 INR 1.1 (0.9-1.1) 04/30/19 06:17 APTT 28.2 Seconds (21.0-31.0) 04/30/19 06:17
[2019-04-30] MEDS ORDERED: PROMETHAZINE HCL 6.25 MG in SODIUM CHLORIDE 0.9% 50 ML IV PRN (13:41)
[2019-04-30] MEDS ORDERED: ePHEDrine sulfate 50 MG/ML AMP IV PRN (13:41)
[2019-04-30] MEDS ORDERED: ATROPINE SULFATE 0.1 MG/ML 10ML SYR IV PRN (13:41)
[2019-04-30] MEDS ORDERED: HYDROmorphone INJ 2 MG/ML SYR/VIAL IV PRN (13:41)
[2019-04-30] MEDS ORDERED: HYDROmorphone INJ 2 MG/ML SYR/VIAL ONE (14:07)
[2019-04-30] MEDS ORDERED: DEXAMETHASONE SOD INJ 4 MG/ML VIAL ONE (14:11)
[2019-04-30] MEDS ORDERED: NEOSTIGMINE METHYLSULFATE 5 MG/5 ML SYR ONE (14:11)
[2019-04-30] MEDS ORDERED: ROCURONIUM BROMIDE 10 MG/ML 5 ML VIAL ONE (14:11)
[2019-04-30] MEDS ORDERED: KETOROLAC 30 MG/ML VIAL ONE (14:11)
[2019-04-30] MEDS ORDERED: LIDOCAINE HCL 2% 2 ML VIAL/AMP(20MG/ML) INFIL ONE (14:11)
[2019-04-30] MEDS ORDERED: GLYCOPYRROLATE 0.2 MG/ML VIAL ONE (14:11)
[2019-04-30] MEDS ORDERED: ONDANSETRON INJ 2 MG/ML 2 ML VIAL ONE (14:11)
[2019-04-30] MEDS ORDERED: PROPOFOL IV EMULSION 10 MG/ML 20 ML VIAL IV ONE (14:11)
[2019-04-30] MEDS ORDERED: SUCCINYLCHOLINE CHLORIDE 20 MG/ML 10 ML VIAL ONE (14:11)
--- NOTE | 2019-04-30 14:16 | Operative Report ---
Post Operative Report Pre & Post Diagnosis Operation Date: 04/30/19 13:00 Pre-Op Diagnosis: appendicitis Post-Op Diagnosis: appendicitis Procedure Operation Date: 04/30/19 13:00 Actual Procedures p Laparoscopic Appendectomy - Hubert Serrato DO, NANO Surgeon Hubert Serrato DO, NANO Quartz Cutter Antonio Lopes Estimated Blood Loss 2 Findings Consistent with Post-Op Diagnosis Acute, suppurative, nonperforated appendicitis Specimens Appendix Anesthesia Type General Complications none Disposition Accompanied Patient To Recovery: No Disposition: Recovery Room Indications 24-year-old female with abdominal pain and physical exam, labs, and CT scan showing acute appendicitis, plan for laparoscopic appendectomy. The risks of the procedure were discussed, all questions were answered, and the patient agreed to proceed with surgery as planned. Description of Procedure The patient was properly identified, consented, and taken to the operating room where she was placed in the supine position. General endotracheal anesthesia was induced. SCDs and a safety belt were placed. Preoperative antibiotics were administered. A Durant catheter was not placed. The patient's abdomen was prepped and draped in the standard sterile fashion. Surgical timeout was performed and all parties were in agreement that this was the correct patient and procedure to be performed and we continued as planned. A curvilinear infraumbilical incision was made with electrocautery and deepened down to the fascia with blunt dissection. The base of the umbilicus was grasped with a Angel and elevated towards the ceiling. An incision was made in the midline fascia with a knife and entry into the peritoneum was confirmed. Stay suture of 0 Vicryl was placed and a Rosario trocar was inserted. The abdomen was insufflated with carbon dioxide which the patient tolerated without incident. The laparoscope was inserted and no damage from initial trocar placement was noted, no gross abnormalities were noted within the 4 quadrants the abdomen. 5 mm ports were then placed in the left lower quadrant with care not to damage the epigastric vessels, and in the suprapubic midline with care not to damage the bladder. The patient was placed in Trendelenburg position and rotated towards the left. The small bowel was swept away from the right lower quadrant. The cecum was grasped with an atraumatic grasper exposing the appendix. The appendix was moderately inflamed and there was no evidence of perforation. There was minimal fluid in the pelvis. The appendix had some suppurative exudate. A window was created between the base of the appendix and the mesoappendix. A abraham loaded endoscopic stapler was then used to divide the appendix at its base. A abraham load was then used to divide the mesoappendix. Hemostasis was good. The appendix was placed in an Endo Catch bag and removed through the umbilical port site. The right lower quadrant and pelvis was irrigated and hemostasis was found to be good. 5 mm trochars were removed under direct visualization and the abdomen was allowed to collapse. The umbilical port site fascia was closed with 0 Vicryl s uture. The wound was irrigated, and the skin of all ports was closed with 4-0 Monocryl subcuticular sutures. Dermabond was placed over the wounds. The patient was extubated in the operating room and taken to the PACU where she recovered without apparent incident. All sponge, instrument and needle counts were correct at the conclusion of the procedure. The patient tolerated the procedure well. The physician's pediatric physical therapy assistant was present and scrubbed for the entirety of the case. He was critical in positioning the patient, prepping and draping, retraction and exposure, driving laparoscope, removal of the appendix, closure the incisions, and placement of the dressings. I attest to the content of the Intraoperative Record and any orders documented therein. Any exceptions are noted below.
[2019-04-30] MEDS ORDERED: SUGAMMADEX SODIUM 200 MG/2 ML VIAL IV ONE (14:32)
--- NOTE | 2019-04-30 14:50 | Anesthesiology Progress Note ---
Date of Service April 30, 2019 Anesthesia Post Procedure Vital Signs Vital Signs: Temp Pulse Pulse Resp BP BP Pulse Ox 04/30/19 13:13 95 04/30/19 13:04 79 16 94/51 L 100 04/30/19 12:18 87 17 96/54 L 100 04/30/19 11:13 85 20 91/52 L 99 04/30/19 09:02 88 18 118/64 97 04/30/19 07:00 85 18 115/62 98 04/30/19 06:34 93 H 20 116/56 L 100 04/30/19 06:03 100 04/30/19 05:02 36.8 C 90 20 112/44 L 100 Pain Intensity Abdomen: Pain Intensity: 6 Transfer of Care Handoff Completed per policy Notes Mental Status: alert / awake / arousable Patient Amnestic to Procedure: Yes Nausea / Vomiting: adequately controlled Pain: adequately controlled Airway Patency, RR, SpO2: stable & adequate BP & HR: stable & adequate Hydration State: stable & adequate Anesthetic Complications: no major complications apparent Notes: Patient appears to be quite sensitive to rocuronium. Had some weakness on emergence and was given 2mg/kg dose of suggamadex. and patient were counseled on the need for backup contraceptive method through next cycle if the patient was using hormonal control. As the patient is not using any hormonal control, this should be of no issue.
[2019-04-30] MEDS: fentaNYL citrate 100 MCG/2 ML VIAL IV PRN ×2 (14:55→15:00)
[2019-04-30] MEDS: LACTATED RINGER'S 1,000 ML IV SCH (15:30)
[2019-04-30] MEDS ORDERED: KETOROLAC 30 MG/ML VIAL IV PRN (15:43)
[2019-04-30] MEDS ORDERED: ACETAMINOPHEN 325 MG TAB PO PRN (15:43)
[2019-04-30] MEDS ORDERED: MoRPHine SULFATE 2 MG/ML CARP IV PRN (15:43)
[2019-04-30] MEDS ORDERED: OXYCODONE/ACETAMINOPHEN 5mg/325mg TAB PO PRN ×2 (15:43)
[2019-04-30] MEDS ORDERED: LORazepam 0.5 MG TAB PO PRN (16:54)
[2019-05-01] MEDS: LACTATED RINGER'S 1,000 ML IV SCH (00:49)
--- NOTE | 2019-05-01 09:34 | Surgery Progress Note ---
Date of Service May 01, 2019 Assessment & Plan (1) Appendicitis: s/p lap appendectomy, doing well d/c to home wound care instructions and activity restrictions reviewed rx for pain meds on chart follow up in 2 weeks return precautions given Subjective POD#1 lap appendectomy, doing well, pain controlled, tolerating diet, no more anxiety. Feels better than prior to surgery. Physical Exam Constitutional: WD/WN, vitals as above Gastrointestinal (Abdomen): Inspection/Auscultation: + abdominal surgical incision (some echymossis, appropriately tender, no infection) Percussion/Palpation: abdomen soft Results & Data Vital Signs (Past 12 Hours) Vital Signs Temp Pulse Pulse Resp BP Pulse Ox Pulse Ox 05/01/19 07:40 37.0 C 70 16 98/60 L 97 05/01/19 03:30 37.1 C 70 17 93/54 L 97 05/01/19 00:35 97 04/30/19 23:01 36.6 C 99 H 18 93/55 L 97 PG Care Time/CCT Total # of Minutes Spent Total Time Spent with Patient: Total time spent is greater than 50% in coordination of care (as documented) at patient's floor/unit and/or counseling patient:
--- NOTE | 2019-05-03 11:34 | Discharge Summary ---
PRIMARY DISCHARGE DIAGNOSIS: Acute appendicitis. PROCEDURE PERFORMED: Laparoscopic appendectomy. HOSPITAL COURSE: The patient is a 24-year-old female who presented to the Emergency Department for the second time in a day, complaining of pain now localizing in the periumbilical region. Her white count was 16,000. CT was performed with contrast confirming appendicitis. She was taken to the operating room for laparoscopic appendectomy. She was transferred to the surgical floor for overnight observation. On the next morning, she was tolerating diet and oral analgesics. Her abdomen was soft. Incisions were clean and dry. She was stable for discharge. DISCHARGE INSTRUCTIONS: Discharge home. Follow up with Dr. Serrato in 2 weeks. DISCHARGE MEDICATIONS: Haviland 1-2 tablets every 4 hours as needed. Continue home medications Aldactone 50 mg b.i.d., Adderall 5 mg p.o. q.i.d.
== END 2019-05-01 11:39 | disposition home or self-care (01) ==
LOC: ED 05:09 → 3N 13:13 → OR 13:13